=== PATIENT | male | born 1955 | race Caucasian/White ===

== ENCOUNTER 2018-09-18 13:51 | Emergency (ER) | payer OTHER ==
[~2018-09-18] VITALS: Ht 188 cm; Wt 81.8 kg
[2018-09-18] MEDS ORDERED: ASPI81CH44 PO (14:02)
--- NOTE | 2018-09-18 15:14 | REP ---
UNILATERAL RIGHT RIBS, PA CHEST, FIVE VIEWS: HISTORY: Fall. The lungs are clear. The heart is normal in size. The pulmonary vasculature is normal in appearance. There are fractures of the right 9th through 11th ribs. IMPRESSION: Right 9th through 11th rib fractures. Electronically Signed by Zeus Roper MD 09/18/2018 03:25 P
[2018-09-18] MEDS ORDERED: NORCO, ANEXSIA 5/325MG TABLET (HYDROcodone/ACETAMINOPHEN) PO ONE (15:15)
[2018-09-18] MEDS ORDERED: NORC1TAB7 PO ×2 (15:25→15:28)
[2018-09-18 15:49] VITALS: BP 133/82
== END 2018-09-18 15:50 | disposition home or self-care (01) ==
LOC: M ED 13:51
DX: S22.41XA Multiple fractures of ribs, right side, initial encounter for closed fracture (principal); W01.0XXA Fall on same level from slipping, tripping and stumbling without subsequent striking against object, initial encounter; Y92.012 Bathroom of single-family (private) house as the place of occurrence of the external cause; Z79.82 Long term (current) use of aspirin